=== PATIENT | female | born 1990 | race Caucasian/White ===

== ENCOUNTER → 2016-09-24 | Outpatient (CLI) | payer OTHER ==
[~2016-09-24] MED LIST: ACID REDUCER75 M1 PO; AMOXICILLIN PO; BACTRIM DS TABL1 TAB PO; NAPROSYN250 M1; NO MEDICATIONS; PEPTO-BISM525 MG/15 PO; PHENERGAN PO; PHENERGAN25 MG PO; PRILOSEC PO; PRILOSEC20 MG PO; PROTONIX PO; ULTRAM PO; VICODIN 5/500 T1 TAB PO; VOLTAREN75 MG PO; ZANTAC PO; [UNRECOGNIZED DRUG - REMARK]
--- NOTE | ~2016-09-24 | US17 ---
[facility] A Service [facility] RADIOLOGY TEXT RESULTS PATIENT: BENITA PATINO LOCATION: [facility] : [birth year] UNIT #: [id number] AGE: [address]: Casi Pena MD SEX: F ORDER DR: [id number] [address] [id number] O MR#: [id number] Acc #: [id number] NAME: BENITA PATINO : 1990 SEX: F STUDY DATE/TIME: 09/24/2016 11:22 UNIT: [facility] ROOM: STUDY DESCRIPTION: US Breast Bilateral Attending Physician: Casi Pena M.D. Ordering Physician: Casi Pena M.D. Primary Care Physician: Casi Pena M.D. MEDICAL IMAGING REPORT This report is preliminary unless electronic signature is present EXAM Bilateral breast ultrasound INDICATION Palpable mass in the right breast. Abnormal clinical exam of the left breast. COMPARISON None available. FINDINGS Adams-scale and color ultrasound of both breasts were performed. There is no suspicious findings in the breast. No mass or lesion is identified. IMPRESSION 1. Negative bilateral breast ultrasound. BIRADS: 1 Negative RECOMMENDATIONS The patient was encouraged continue self breast examination as well as clinical follow up. If the physical exam findings change, the patient should return for additional imaging. A decision to perform biopsy should be based upon the clinical results. Dictated by... Jean Vásquez M.D. THIS IS AN ELECTRONICALLY VERIFIED REPORT Jean Vásquez M.D. at 09/25/2016 8:03 AM C/jamshid [facility] A Service [facility] RADIOLOGY TEXT RESULTS PATIENT: BENITA PATINO LOCATION: [facility] : [birth year] UNIT #: [id number] AGE: [address]: Casi Pena MD SEX: F ORDER DR: TD: 09/24/2016 16:23 JOB #: [id number] MEDICAL IMAGING REPORT Page 1 of 1 COPY
== END | disposition home or self-care (01) ==
LOC: CWCC 10:56
DX: N63 Unspecified lump in breast (principal)
CPT/HCPCS: 76641